=== PATIENT | male | born 1950 | race Two or more races ===

== ENCOUNTER 2019-03-30 12:50 | Emergency (ER) | payer MEDICARE ==
[2019-03-30] MEDS ORDERED: Lidocaine 1% with EPINEPHrine 1:100,000 10 ML MDV INJECT ONE (12:51)
[2019-03-30] MEDS ORDERED: Ibuprofen 400 MG Tab PO ONE (13:51)
--- NOTE | 2019-03-30 13:51 | EDM.PDOC ---
ED HPI GENERAL MEDICAL PROBLEM - General Chief Complaint: Laceration Stated Complaint: CUT ON ARM Time Seen by Provider: 03/30/19 13:35 Source of Information: Reports: Patient History Limitations: Reports: No Limitations - History of Present Illness INITIAL COMMENTS - FREE TEXT/NARRATIVE: Joseph was cleaning fish this am and accidentally lacerated his L forearm. There is some active bleeding. There is FROM and sensation is present. He is not reporting any other injuries. right hip Pain Score (Numeric/FACES): 7 - Related Data Allergies Allergy/AdvReac Type Severity Reaction Status Date / Time No Known Allergies Allergy Verified 03/30/19 13:14 Home Meds: Home Meds . [Unable to Verify Home Med List] 03/30/19 [History] Past Medical History Gastrointestinal History: Reports: Other (See Below) Other Gastrointestinal History: hernia Genitourinary History: Reports: Other (See Below) Other Genitourinary History: hx of suprapubic villalba Endocrine/Metabolic History: Reports: Diabetes, Type II Social & Family History - Tobacco Use Smoking Status *Q: Current Every Day Smoker Years of Tobacco use: 35 Packs/Tins Daily: 0.5 - Caffeine Use Caffeine Use: Reports: Coffee - Recreational Drug Use Recreational Drug Use: No ED ROS GENERAL - Review of Systems Review Of Systems: ROS reveals no pertinent complaints other than HPI. ED EXAM, SKIN/RASH Exam: See Below Exam Limited By: No Limitations General Appearance: Alert, WD/WN, No Apparent Distress Head: Normocephalic Neck: Normal Inspection, Supple, Non-Tender Respiratory/Chest: Lungs Clear, Normal Breath Sounds Cardiovascular: Regular Rate, Rhythm, No Murmur Back Exam: Normal Inspection Extremities: Normal Range of Motion, Other (1.8 cm laceration L forearm) Neurological: Alert, Oriented, CN II-XII Intact, Normal Cognition, No Motor/ Sensory Deficits Psychiatric: Normal Affect, Normal Mood Skin: Warm, Dry, Wound/Incision (1.8 cm L forearm) Lymphatic: No Adenopathy ED SKIN PROCEDURES - Laceration/Wound Repair Left Middle Ventral Arm Lac/Wound length In cm: 1.8 Appearance: Linear Distal NVT: Neuro & Vascular Intact, No Tendon Injury Anesthetic Type: Local Local Anesthesia - Lidocaine (Xylocaine): 1% with EPI Local Anesthetic Volume: 2cc Skin Prep: Chlorhexidine (Hibiciens) Exploration/Debridement/Repair: Wound Explored, No Foreign Material Found Suture Size: 4-0 # of Sutures: 4 Suture Type: Nylon, Interrupted Drain Placement: No Sterile Dressing Applied: Nurse Tetanus Status Addressed: Yes Complications: No Course - Vital Signs Text/Narrative:: Patient tolerated procedure well. I administered Ibuprofen 400 mg for hip pain at patient request. Last Recorded V/S: Last Vital Signs Temp 36.8 C 03/30/19 12:50 Pulse 76 03/30/19 12:50 Resp 18 03/30/19 12:50 BP 134/64 03/30/19 12:50 Pulse Ox 100 03/30/19 12:50 Departure - Departure Time of Disposition: 13:50 Disposition: Home, Self-Care 01 Condition: Good Clinical Impression: Laceration of left forearm without complication Qualifiers: Encounter type: initial encounter Qualified Code(s): S51.812A - Laceration without foreign body of left forearm, initial encounter - Discharge Information *PRESCRIPTION DRUG MONITORING PROGRAM REVIEWED*: Not Applicable *COPY OF PRESCRIPTION DRUG MONITORING REPORT IN PATIENT ZURDO: Not Applicable - Problem List & Annotations (1) Laceration of left forearm without complication SNOMED Code(s): 563412685 Code(s): S51.812A - LACERATION WITHOUT FOREIGN BODY OF LEFT FOREARM, INIT ENCNTR Status: Acute Annotation/Comment:: Routine wound cares. Qualifiers: Encounter type: initial encounter Qualified Code(s): S51.812A - Laceration without foreign body of left forearm, initial encounter - Problem List Review Problem List Initiated/Reviewed/Updated: Yes - Assessment/Plan Plan: Follow up with PCP for SR.
== END 2019-03-30 13:56 | disposition home or self-care (01) ==
LOC: FB.ED 12:50
DX: S51.812A Laceration without foreign body of left forearm, initial encounter (principal); E11.9 Type 2 diabetes mellitus without complications; F17.210 Nicotine dependence, cigarettes, uncomplicated; W26.8XXA Contact with other sharp object(s), not elsewhere classified, initial encounter
CPT/HCPCS: 12001; 99282; A9270